=== PATIENT | female | born 1985 | race Caucasian/White ===

== ENCOUNTER 2016-12-01 17:15 | Emergency (ER) | payer OTHER ==
[2016-12-01 17:26] VITALS: BP 127/72; PULSE 65; TEMP 98; BMI 26.5
[2016-12-01] MEDS ORDERED: IBUPROFEN 400 MG TABLET (FP) PO ONE ×2 (17:44→17:50)
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
== END 2016-12-01 18:00 | disposition home or self-care (01) ==
LOC: FER 17:15
DX: S33.5XXA Sprain of ligaments of lumbar spine, initial encounter (principal); V43.52XA Car driver injured in collision with other type car in traffic accident, initial encounter; Y93.89 Activity, other specified; Y92.410 Unspecified street and highway as the place of occurrence of the external cause; F41.9 Anxiety disorder, unspecified
CPT/HCPCS: 99282-25

== ENCOUNTER 2017-03-16 00:52 | Emergency (ER) | payer OTHER ==
[2017-03-16] MEDS ORDERED: SODIUM CHLORIDE 1,000 ML IV STA ×2 (00:58→01:47)
[2017-03-16] MEDS ORDERED: KETOROLAC TROMETHAMINE 30 MG/1 ML VIAL IVPUSH ONE (00:58)
--- NOTE | 2017-03-16 00:58 | PDOC ---
History of Present Illness - General Chief Complaint: Pain, Acute Stated Complaint: I HAVE A KIDNEY STONE Time Seen by Provider: 03/16/17 00:56 - History of Present Illness Initial Comments: this 31-year-old woman with a history of renal colic twice in the past ( 2013) presents with right-sided flank pain for the last few hours. Patient had felt that she urinated more than usual over the last few days but no other symptoms until awakened at approximately 11 PM this evening with nausea and sharp flank pain similar to previous episodes of renal colic. She had small amount of liquid stool but no vomiting subsequent to onset of pain. Pain was persistent and patient came to the emergency room. She has not had any gross hematuria/ dysuria. No fever or chills noted. Patient required lithotripsy in 2014 but since then, has not had any pain or other issues until tonight. Patient has a history of anxiety; no other past medical history Past History - Past Medical History Allergies/Adverse Reactions: Allergies Allergy/AdvReac Type Severity Reaction Status Date / Time No Known Allergies Allergy Verified 03/16/17 00:57 Home Medications: Ambulatory Orders Acetaminophen with Codeine [Tylenol with Codeine #3 Tablet] 1 each PO TID PRN # 6 tablet MDD 3 tabs 03/16/17 Kidney Stones: Yes Psychiatric Problems: Yes (ANXIETY) - Psycho/Social/Smoking Cessation Hx Anxiety: No Suicidal Ideation: No Smoking History: Never smoked Have you smoked in the past 12 months: No Number of Cigarettes Smoked Daily: 0 Hx Alcohol Use: No Drug/Substance Use Hx: No Substance Use Type: None Review of Systems - Review of Systems Able to Perform ROS?: Yes Comments:: 12 point review of systems is negative except for what is noted in the history of present illness *Physical Exam - Physical Exam Comments: GENERAL: Adult female, alert and oriented 3, in moderate distress secondary to right flank pain. Vital signs as noted. HEAD: Normal with no signs of trauma. EYES: Pupils equal, round and reactive to light, extraocular movements intact, sclera anicteric, conjunctiva clear with no pallor. ENT: moist mucous membranes. Ears normal, nares patent, oropharynx clear without exudates. NECK: Normal range of motion, supple without lymphadenopathy, JVD, or masses. LUNGS: Breath sounds equal, clear to auscultation bilaterally. No wheeze/ crackles. HEART: Regular rate and rhythm, normal S1 and S2 without murmur or rub. ABDOMEN: Soft/nontender/nondistended. BS wnl. No guarding or rebound. No palpable masses. No hepatosplenomegaly. Moderate right flank/CVA tenderness EXTREMITIES: Normal range of motion, no edema. No clubbing or cyanosis. No cords, erythema, or tenderness. NEUROLOGICAL: Cranial nerves II through XII grossly intact. Normal speech, normal gait. PSYCH: Normal mood, normal affect. SKIN: Warm, Dry, normal turgor, no rashes or lesions noted. ED Treatment Course - LABORATORY CBC & Chemistry Diagram: 03/16/17 01:02 03/16/17 01:02 Progress Note - Progress Note Progress Note: As noted above, this 31-year-old woman with a history of renal colic in the past , one episode requiring lithotripsy, presents with sudden onset of flank/CVA pain on the right side ,very typical of the pain she has experienced before during renal colic episodes. Patient given a liter of normal saline with 30 mg of Toradol soon after presentation. CBC/chemistry profile/urinalysis/PGU sent. Patient had some residual pain after 30 mg IV Toradol. Dilaudid 1 mg IV given PGU negative. Patient had more significant relief in her pain after Dilaudid 1 mg IV. Additional liter of normal saline administered Laboratory evaluation CBC/chemistry profile/UA is essentially normal. Because of the patient describes pain that was identical to previous episodes of renal colic , renal stone protocol CT performed to evaluate for hydronephrosis / hydroureter or retained stones Preliminary analysis by [facility] shows no evidence of hydronephrosis/ hydroureter or ureteral stones. Likewise, there was no other acute abnormality seen. Results discussed with the patient. Patient states that when she urinated she noted a fine granular material in the urine. It is likely that patient has past her kidney stone. She continues to be comfortable and will be discharged with instructions to drink. She should use acetaminophen/ibuprofen/naproxen as needed for [id number] pain. Patient states that she would prefer Tylenol with codeine No. 3 rather than oxycodone prescribed for more severe pain ( patient had been prescribed both during previous episodes of renal colic) because Tylenol with codeine was less sedating than oxycodone. Small (#6) prescription for Tylenol with Codeine No. 3 was transmitted to her pharmacy. She should follow-up with her urologist within a week. She should return to the ER if she has severe, persistent pain, vomiting or fever Medical Decision Making - Medical Decision Making 03/16/17 03:17 Addendum : after patient was discharged, remainder of Dilaudid ampule (1 mg) could not be wasted in Pyxis because the required information was not in the Pyxis after patient left. *DC/Admit/Observation/Transfer Diagnosis at time of Disposition: Renal colic on right side - Discharge Dispostion Disposition: HOME Condition at time of disposition: Stable - Prescriptions Prescriptions: Acetaminophen with Codeine [Tylenol with Codeine #3 Tablet] 1 each PO TID PRN # 6 tablet MDD 3 tabs PRN Reason: Severe Pain - Patient Instructions Printed Discharge Instructions: DI for Flank Pain Additional Instructions: drink plenty of water Strain all urine for the next few days and keep retain stones for analysis Tylenol/Motrin/Aleve as needed for [id number] pain Tylenol with codeine No. 3 as needed for more severe pain Follow-up with your urologist within the next 10 days as discussed Return to ER if you have persistent severe pain or experiences vomiting/fever
[2017-03-16 01:14] VITALS: BP 96/55; PULSE 58; TEMP 97.4; BMI 25.7
[2017-03-16] MEDS ORDERED: HYDROmorphone HCL CARPU-JECT 1 MG/1 ML DISP.SYRIN IVPUSH ONE (01:46)
[2017-03-16 01:48] LABS: URINE APPEARANCE CLEAR; URINE BILIRUBIN NEGATIVE (NEGATIVE); URINE BLOOD NEGATIVE (NEGATIVE); URINE COLOR COLORLESS; URINE GLUCOSE (UA) NEGATIVE (NEGATIVE); URINE KETONE NEGATIVE (NEGATIVE); URINE LEUK ESTERASE NEGATIVE (NEGATIVE); URINE NITRITE NEGATIVE (NEGATIVE); URINE PROTEIN NEGATIVE (NEGATIVE); URINE UROBILINOGEN NEGATIVE E.U./dl (0.2-1.0)
[2017-03-16 01:51] LABS: BASOPHIL 1.1 % (0-2.0); MCH 29.6 pg (25.7-33.7); MCHC 33.2 g/dl (32.0-36.0); MEAN CELL VOLUME 88.9 fl (80-96); PLATELET COUNT 281 K/MM3 (134-434); RDW 12.3 % (11.6-15.6); WHITE BLOOD COUNT 7.5 K/mm3 (4.0-10.0)
[2017-03-16 02:10] LABS: ALBUMIN 3.6 g/dl (3.4-5.0); ALK PHOS 70 U/L (45-117); ANION GAP 12 (8-16); BILIRUBIN,TOTAL 0.3 mg/dL (0.2-1.0); CALCIUM 9.4 mg/dL (8.5-10.1); CO2 23 mmol/L (21-32); COCKROFT - GAULT 169.2605; CREATININE 0.5 mg/dL (0.55-1.02); GLUCOSE,RANDOM 95 mg/dL (74-106); SGOT/AST 13 U/L (15-37); SGPT/ALT 14 U/L (12-78); TOT PROT 6.5 g/dl (6.4-8.2)
== END 2017-03-16 02:58 | disposition home or self-care (01) ==
LOC: FER 00:52
PROC: 3E033NZ Introduction of Analgesics, Hypnotics, Sedatives into Peripheral Vein, Percutaneous Approach (ICD-10-PCS; principal; 2017-03-16)
PROC: 3E0333Z Introduction of Anti-inflammatory into Peripheral Vein, Percutaneous Approach (ICD-10-PCS; 2017-03-16)
PROC: 3E0337Z Introduction of Electrolytic and Water Balance Substance into Peripheral Vein, Percutaneous Approach (ICD-10-PCS; 2017-03-16)
DX: N23 Unspecified renal colic (principal); F41.9 Anxiety disorder, unspecified
CPT/HCPCS: 36415; 74176; 80053; 81003; 84703; 85025; 99282-25

== ENCOUNTER 2017-11-07 07:47 | Emergency (ER) | payer OTHER ==
--- NOTE | 2017-11-07 07:55 | PDOC ---
History of Present Illness - General Chief Complaint: Sore Throat Stated Complaint: SORE THROAT Time Seen by Provider: 11/07/17 07:53 - History of Present Illness Initial Comments: 11/07/17 08:04 Chief complaint: Sore throat History of present illness: Patient has had a sore throat for 2 days, appears to be getting worse, had negative throat culture yesterday, taking ibuprofen without relief, 400 mg at a time. Review of systems: Denies fever/chills, headache, cough, chest pain, shortness of breath, abdominal pain, nausea, vomiting, diarrhea, visual or focal neurologic symptoms, unsteadiness of gait, urinary tract symptoms, vaginal bleeding or discharge. Last menses 3 weeks ago, no missed menses, denies possibility of Past medical history: Mononucleosis 10 years ago. Otherwise no serious medical or surgical problems, no home medications other than ibuprofen Social/family history: No tobacco alcohol or nonprescription drugs. Active without disability. Family history negative Physical exam: Alert and oriented well-developed well-nourished extremely anxious and tearful but no respiratory distress. PERRLA, fundi benign, conjunctivae, ears clear. Throat mildly injected without exudate swelling or mass. No airway obstruction, drooling, or stridor Neck supple without bruit mass or nodes Chest clear to P&A, full breath sounds throughout bilaterally, no wheezes rales or rhonchi CV regular without murmur rub or gallop pulses full and symmetric no JVD or edema no bruits Abdomen nondistended, normal bowel sounds, soft without masses tenderness or organomegaly Extremities no CCE Skin clear, no rash, adequate turgor and wet mucous membranes Neurological intact Impression: Probable viral pharyngitis, no airway compromise, anxiety Plan: Repeat rapid strep, flu swab, symptomatic treatment and further treatment depending on results of labs. Past History - Past Medical History Allergies/Adverse Reactions: Allergies Allergy/AdvReac Type Severity Reaction Status Date / Time No Known Allergies Allergy Verified 03/16/17 00:57 Home Medications: Ambulatory Orders Amoxicillin/Potassium Clav [Amox-Clav 875-125 mg Tablet] 1 each PO BID 11/07/17 Kidney Stones: Yes Psychiatric Problems: Yes (ANXIETY) - Suicide/Smoking/Psychosocial Hx Smoking History: Never smoked Have you smoked in the past 12 months: No Number of Cigarettes Smoked Daily: 0 Hx Alcohol Use: No Drug/Substance Use Hx: No Substance Use Type: None Medical Decision Making - Medical Decision Making 11/07/17 09:48 Rapid strep and flu swab are both negative Patient much improved after Toradol and Vistaril. She has been taking antibiotics prescribed by another physician for several days, Augmentin. Continue symptomatic treatment, rest and fluids, and follow-up as needed. Fully ambulatory and in no acute distress upon discharge to follow-up as recommended *DC/Admit/Observation/Transfer Diagnosis at time of Disposition: Acute viral pharyngitis - Discharge Dispostion Disposition: HOME Condition at time of disposition: Improved Admit: No - Referrals Referrals: Home Gaines MD [Staff Physician] - - Patient Instructions Printed Discharge Instructions: DI for Viral Pharyngitis Additional Instructions: Prescribed medications as needed. Gargle but don't swallow: One part liquid Benadryl, one part Mylanta, for symptomatic relief. - Post Discharge Activity Forms/Work/School Notes: Back to Work
[2017-11-07 07:58] VITALS: BP 126/87; PULSE 104; TEMP 99.4; BMI 22.1
[2017-11-07] MEDS ORDERED: KETOROLAC TROMETHAMINE 60 MG/2 ML VIAL IM ONE (08:03)
[2017-11-07] MEDS ORDERED: hydrOXYzine PAMOATE 25 MG CAPSULE (FP) PO ONE ×2 (08:04→08:09)
[2017-11-07] MEDS ORDERED: KETOROLAC TROMETHAMINE 60 MG/2 ML VIAL ONE (08:09)
== END 2017-11-07 10:10 | disposition home or self-care (01) ==
LOC: FER 07:47
PROC: 3E0233Z Introduction of Anti-inflammatory into Muscle, Percutaneous Approach (ICD-10-PCS; principal; 2017-11-07)
DX: J02.8 Acute pharyngitis due to other specified organisms (principal); B97.89 Other viral agents as the cause of diseases classified elsewhere
CPT/HCPCS: 87070; 87430; 87804; 99281-25